=== PATIENT | female | born 1960 | race Caucasian/White ===

== ENCOUNTER → 2016-10-15 | Outpatient (CLI) | payer MEDICAID ==
--- NOTE | 2016-10-15 14:55 | CR ---
EXAMINATION: Two-view chest (PA and Lateral views). HISTORY: COPD. FINDINGS: The trachea is midline. The cardiomediastinal silhouette is within normal limits. Possible trace pat kellie infiltrate within the right lung base. No pleural effusion or pneumothorax. Old bilateral rib fractures are noted. IMPRESSION: Possible trace patchy infiltrate within the right lung base.
== END ==
LOC: MW.CHIM 10-08 13:48
PROVIDERS: ATTEND Internal Medicine
DX: J44.1 Chronic obstructive pulmonary disease with (acute) exacerbation (principal)
CPT/HCPCS: 71020; 71020-26

== ENCOUNTER 2019-07-06 10:04 | Emergency (ER) | payer BC ==
--- NOTE | 2019-07-06 10:14 | EDM.PDOC ---
ED HPI GENERAL MEDICAL PROBLEM - General Chief Complaint: General Stated Complaint: EXHAUSTED Time Seen by Provider: 07/06/19 10:06 Source of Information: Reports: Patient History Limitations: Reports: No Limitations - History of Present Illness INITIAL COMMENTS - FREE TEXT/NARRATIVE: HISTORY AND PHYSICAL: History of present illness: Patient is a 58-year-old female who presents to the ED today with concern of feeling "overwhelmed with life" for the past 3 years. Patient states that she feels stressed out about the daily chores she has to do such as "being all , running errands, cleaning the house, and cooking." Patient states that she has seen Sailaja Vizcarra in the clinic and was placed on Abilify but she does not feel like this is helping so she stopped taking it months ago. Patient states she has not followed up with Sailaja because she wants to see a "real doctor and not a nurse." Patient denies any suicidal or homicidal ideation or plan. Patient denies any other symptoms or concerns. Patient denies fever, chills, chest pain, shortness of breath, or cough. Denies headache, neck stiff ness, change in vision, syncope, or near syncope. Denies nausea, vomiting, abdominal pain, diarrhea, constipation, or dysuria. Has not noted any blood in urine or stool. Patient has been eating and drinking appropriately. Review of systems: As per history of present illness and below otherwise all systems reviewed and negative. Past medical history: As per history of present illness and as reviewed below otherwise noncontributory. Surgical history: As per history of present illness and as reviewed below otherwise noncontributory. Social history: See social history for further information Family history: As per history of present illness and as reviewed below otherwise noncontributory. Physical exam: General: Patient is alert, oriented, and in no acute distress. Patient sitting comfortably on exam table. HEENT: Atraumatic, normocephalic, pupils equal and reactive bilaterally, negative for conjunctival pallor or scleral icterus, mucous membranes moist, TMs normal bilaterally, throat clear, neck supple, nontender, trachea midline. No drooling or trismus noted. No meningeal signs. No hot potato voice noted. Lungs: Clear to auscultation, breath sounds equal bilaterally, chest nontender. Heart: S1S2, regular rate and rhythm without overt murmur Abdomen: Soft, nondistended, nontender. Negative for masses or hepatosplenomegaly. Negative for costovertebral tenderness. Pelvis: Stable nontender. Genitourinary: Deferred. Rectal: Deferred. Skin: Intact, warm, dry. No lesions or rashes noted. Extremities: Atraumatic, negative for cords or calf pain. Neurovascular unremarkable. Neuro: Awake, alert, oriented. Cranial nerves II through XII unremarkable. Cerebellum unremarkable. Motor and sensory unremarkable throughout. Exam nonfocal. Notes: Discussed with patient that [facility] does not have a PsychiatristMD on staff and that if she desires this that she would need to travel. Patient states she does not want to travel and desires to see Sailaja. Discussed the importance for follow-up with Sailaja and her primary care provider. Voices understanding and is agreeable to plan of care. Denies any further questions or concerns at this time. Diagnostics: None Therapeutics: None Prescription: None Impression: Medical screening exam Plan: 1. Follow up with Sailaja Vizcarra and your primary care provider as discussed. Return to the ED as needed and as discussed. Definitive disposition and diagnosis as appropriate pending reevaluation and review of above. - Related Data Allergies Allergy/AdvReac Type Severity Reaction Status Date / Time aripiprazole [From Abilify] Allergy Confusion Verified 07/06/19 10:09 codeine Allergy Itching Verified 02/05/15 14:00 diazepam [From Valium] Allergy Anxiety Verified 07/06/19 10:09 hydrocodone Allergy Itching Verified 02/27/15 09:40 tramadol HCl [From Ultram] Allergy Nausea and Verified 02/27/15 09:41 Vomiting Home Meds: Home Meds . [No Known Home Meds] 07/06/19 [History] Past Medical History Other Respiratory History: History of smoking, current use everyday for many years Other NURSE LDR History: LMP 5 1/2 weeks ago "due any day now" Other Musculoskeletal History: hx: Fractured Right little finger with ORIF "pin in there", also Hunter fxs: to arms & legs ED ROS GENERAL - Review of Systems Review Of Systems: Comprehensive ROS is negative, except as noted in HPI. ED EXAM, GENERAL - Physical Exam Exam: See Below (See dictation) Course - Vital Signs Last Recorded V/S: Last Vital Signs Temp 98.2 F 07/06/19 10:11 Pulse 98 07/06/19 10:11 Resp 20 07/06/19 10:11 BP 132/77 07/06/19 10:11 Pulse Ox 96 07/06/19 10:11 Departure - Departure Time of Disposition: 10:32 Disposition: Home, Self-Care 01 Clinical Impression: Encounter for medical screening examination - Discharge Information Referrals: PCP,None [Primary Care Provider] - Forms: ED Department Discharge Additional Instructions: The following information is given to patients seen in the emergency department who are being discharged to home. This information is to outline your options for follow-up care. We provide all patients seen in our emergency department with a follow-up referral. The need for follow-up, as well as the timing and circumstances, are variable depending upon the specifics of your emergency department visit. If you don't have a primary care physician on staff, we will provide you with a referral. We always advise you to contact your personal physician following an emergency department visit to inform them of the circumstance of the visit and for follow-up with them and/or the need for any referrals to a consulting specialist. The emergency department will also refer you to a specialist when appropriate. This referral assures that you have the opportunity for follow-up care with a specialist. All of these measure are taken in an effort to provide you with optimal care, which includes your follow-up. Under all circumstances we always encourage you to contact your private physician who remains a resource for coordinating your care. When calling for follow-up care, please make the office aware that this follow-up is from your recent emergency room visit. If for any reason you are refused follow-up, please contact the [facility] at and asked to speak to the emergency department charge nurse. [facility] [address] [place] [address] [facility], Sailaja Vizcarra [address] [place] [address] Follow up with Sailaja Vizcarra and your primary care provider as discussed. Return to the ED as needed and as discussed.
[2019-07-06 10:17] VITALS: BP 132/77; PULSE 98
== END 2019-07-06 10:52 | disposition home or self-care (01) ==
LOC: MW.ED 10:04
DX: Z13.9 Encounter for screening, unspecified (principal); F17.200 Nicotine dependence, unspecified, uncomplicated; Z88.5 Allergy status to narcotic agent; Z88.8 Allergy status to other drugs, medicaments and biological substances
CPT/HCPCS: 99282